=== PATIENT | female | born 1945 | race Two or more races ===

== ENCOUNTER 2022-02-07 11:04 | Emergency (ER) | payer OTHER ==
[~2022-02-07] VITALS: Ht 157.5 cm; Wt 89.8 kg
[2022-02-07] MEDS ORDERED: AVALIDE 300-121 EACH PO (11:46)
[2022-02-07] MEDS ORDERED: HYDROCHLOROTHIA25 MG PO (11:47)
[2022-02-07] MEDS ORDERED: NORVASC2.5 M1 PO (11:47)
[2022-02-07] MEDS ORDERED: TRENTAL (11:48)
[2022-02-07] MEDS ORDERED: LEVSIN/SL0.125 MG PO (16:41)
[2022-02-07] MEDS ORDERED: CELEBREX100 MG PO (16:41)
== END 2022-02-07 17:02 ==
LOC: ER 11:04
DX: K57.90 Diverticulosis of intestine, part unspecified, without perforation or abscess without bleeding (principal); R10.32 Left lower quadrant pain; Z91.013 Allergy to seafood